=== PATIENT | female | born 1980 | race Caucasian/White ===

== ENCOUNTER 2022-06-11 11:34 | Emergency (ER) | payer BC, SELFPAY ==
--- NOTE | ~2022-06-11 | XR_ITS ---
EXAMINATION: XR lumbar spine 2-3V DATE: 06/11/2022 12:31 INDICATION: Low back pain TECHNIQUE: Anteroposterior and lateral views of the lumbar spine, and cone-down lateral view of the l umbosacral junction were obtained. COMPARISON: None. FINDINGS: There is no fracture, dislocation, or subluxation. The vertebral body heights are maintaine d. There is mild loss of intervertebral disc space height at L5-S1. Small degenerative osteophytes pr oject from the anterior endplates of multiple vertebral bodies. IMPRESSION: 1. Mild lumbar spondylosis without acute findings. Reviewed, dictated and finalized at location B.
--- NOTE | 2022-06-11 11:37 | ED.BACK ---
HPI - Back Pain/Injury General Chief Complaint: Back Pain/Injury Stated Complaint: back pain Time Seen by Provider: 06/11/22 11:53 Source: patient and RN notes reviewed Mode of arrival: ambulatory Limitations: no limitations History of Present Illness HPI Narrative: 41-year-old female presents with concern for low mid back pain. She reports pain started overnight without any injury, trauma, precipitating event. 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 Reports on this instance she felt a pop . She reports any movement exacerbates the pain. She did not try any [id number] medications or interventions at home. She denies loss of bowel or bladder function, perianal anesthesia, weakness in any extremity. Reports her legs feel shaky when she tries to stand up. She relates this to the pain. She denies abdominal pain, nausea, fever. MD elicited complaint: back pain Related Data Home Medications Medication Instructions Recorded Confirmed Zyrtec 06/11/22 adalimumab 40 mg/0.4 mL mg subcut 06/11/22 subcutaneous pen kit (Humira(CF) Pen) bupropion HCl 300 mg 24 hr tablet, mg PO 06/11/22 extended release dextroamphetamine-amphetamine ER PO 06/11/22 30 mg 24hr capsule,extend release Allergies Allergy/AdvReac Type Severity Reaction Status Date / Time latex Allergy Severe Anaphylactic Unverified 06/11/22 11:47 Shock banana Allergy Anaphylactic Verified 06/11/22 11:48 Shock [place] Allergy Swelling Uncoded 06/11/22 11:49 Review of Systems Review of Systems: CONSTITUTIONAL: Denies malaise, chills, sweats, or fever. CARDIOVASCULAR: Denies chest pain, palpitations, or edema. RESPIRATORY: Denies cough or dyspnea. GASTROINTESTINAL: Denies abdominal pain, nausea, vomiting, diarrhea, loss of bowel function GENITOURINARY: Denies dysuria, hematuria, frequency, loss of bladder function. SKIN: Denies rash or itching. MUSCULOSKELETAL: Reports mid low back pain NEUROLOGIC: Denies numbness, weakness, or headache. All systems reviewed & are unremarkable except as noted in HPI and below PMFSH Comments At time of signature, agree with nursing past medical, surgical, social and family history. There is no relevant family history pertinent to the presenting complaint Exam Narrative: GENERAL: Well-appearing, well-nourished, and in no acute distress. HEAD: Normocephalic, atraumatic. EYES: PERRLA and EOMI. NECK: Supple. No lymphadenopathy. CHEST: Clear to auscultation. No respiratory distress. HEART: Regular rate and rhythm. Distal pulses palpable and equal, cap refill <3 seconds ABDOMEN: Soft, nontender, nondistended, normal active bowel sounds, no palpable or pulsatile masses. No CVA tenderness MUSCULOSKELETAL: Normal range of motion and strength in all extremities; 5/5 strength with knee flexion and extension, plantar flexion and extension.4/5 strength hip flexion and extension, dorsiflexion and extension. Normal sensation in dermatomal distributions with sensitivity to light touch and pain. No midline back tenderness to palpation. No paraspinal tenderness. SKIN: Warm, dry, no rash. No ecchymosis, erythema, open wounds to back. NEURO: No focal deficits. Alert and oriented x3. Reflexes intact. Normal gait. PSYCH: Normal mood and affect Course Course Emergency Course: Patient is aware of diagnosis, understands and agrees to treatment plan. Anticipatory guidance given. Patient agrees to follow-up as directed and is aware of reasons to seek care at the emergency department. Portions of this record may have been created with voice recognition software Level of Care: Express Care Visit Vital Signs Vital signs: Vital Signs Temperature 98.9 F 06/11/22 11:45 Pulse Rate 79 06/11/22 11:45 Respiratory Rate 16 06/11/22 11:45 Blood Pressure 125/69 06/11/22 11:45 Pulse Oximetry 99 06/11/22 11:45 Oxygen Delivery Room Air 06/11/22 11:45
[2022-06-11 11:45] VITALS: BP 125/69; PULSE 79; RESP 16; TEMP 37.2; O2SAT 99
[2022-06-11 11:47] VITALS: BP 125/69; PULSE 79; RESP 16; TEMP 37.2; O2SAT 99
[2022-06-11] MEDS: KETOROLAC (*BKC) 60 MG/2 ML VIAL IM (12:05)
--- NOTE | 2022-06-11 12:35 | PC.NURSE ---
aware of awaiting xray result
--- NOTE | 2022-06-11 12:39 | PC.NURSE ---
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
== END 2022-06-11 12:45 | disposition home or self-care (01) ==
PROVIDERS: Emergency Provider Nurse Practitioner
DX: M54.50 Low back pain, unspecified (principal)
CPT/HCPCS: 72100; 96372; 99213; G0463; J1885